=== PATIENT | male | born 1985 ===

== ENCOUNTER 2017-05-10 17:38 | Emergency (ER) | payer SELFPAY ==
[2017-05-10 17:46] VITALS: BMI 31.2
[2017-05-10 17:47] VITALS: TEMP 98.7; O2SAT 98
[2017-05-10 18:36] LABS: RBC URINE 1 /hpf (0-3); URINE BILIRUBIN NEGATIVE (NEGATIVE); URINE BLOOD NEGATIVE (NEGATIVE); URINE COLOR Yellow (YELLOW); URINE GLUCOSE (UA) NORMAL (Normal); URINE KETONE NEGATIVE (NEGATIVE); URINE LEUKOCYTE ESTERASE NEG Leu/uL (Negative); URINE PROTEIN NEGATIVE (NEGATIVE); URINE UROBILINOGEN NORMAL mg/dL (0.2-1.0); WBC URINE < 1 /hpf (0-5)
--- NOTE | 2017-05-10 18:48 | C.PDOC ---
History Of Present Illness 31 yr old male presents to the ER for evaluation of mild discomfort with urination and pain over the penile gland, gradually developing for the past 2 days. Patient denies recent unprotected sex, fever, nausea, vomiting, abdominal pain, diarrhea, penile lesions, testicular swelling or pain. Time Seen by Provider: 05/10/17 17:58 Chief Complaint (Nursing): Male Genitourinary History Per: Patient History/Exam Limitations: no limitations Onset/Duration Of Symptoms: Gradual (2 days) Current Symptoms Are (Timing): Still Present Past Medical History Reviewed: Historical Data, Nursing Documentation, Vital Signs Vital Signs: Last Vital Signs Temp 98.7 F 05/10/17 17:46 Pulse 72 05/10/17 17:46 Resp 18 05/10/17 17:46 BP 132/82 05/10/17 17:46 Pulse Ox 98 05/10/17 18:50 Family History: States: No Known Family Hx - Social History Hx Alcohol Use: No Hx Substance Use: No - Immunization History Hx Tetanus Toxoid Vaccination: No Hx Influenza Vaccination: No Hx Pneumococcal Vaccination: No Review Of Systems Except As Marked, All Systems Reviewed And Found Negative. Constitutional: Negative for: Fever Gastrointestinal: Negative for: Nausea, Vomiting, Abdominal Pain, Diarrhea Genitourinary: Positive for: Dysuria (Mild), Other ((+) pain over the penile gland (-) testicular swelling or pain) Physical Exam - Physical Exam Appears: Non-toxic, No Acute Distress Skin: Warm, Dry, No Rash Head: Normacephalic Eye(s): bilateral: PERRL Nose: No Flaring, No Discharge Oral Mucosa: Moist, No Drooling Throat: No Erythema, No Drooling Neck: Supple Gastrointestinal/Abdominal: Soft, No Tenderness, No Distention, No Guarding, No Rebound Back: No CVA Tenderness Male Genital: No Testicular Tenderness, No Testicular Swelling, No Circumcised, Other ((+) mild edema and erythema over the penile gland, non circumcised. NO lesions) Extremity: Normal ROM, No Swelling Neurological/Psych: Oriented x3, Normal Speech ED Course And Treatment O2 Sat by Pulse Oximetry: 98 (RA) Pulse Ox Interpretation: Normal Progress Note: On re-eavluation, pt is afebrile, hemodynamicalys table. Non- toxic. ENT: no acute findings. neck: Supple. Abd: benign, (-) guarding, (-) rebound, (-) lcoalized tenderness. back: (-) CVA tenderness. : exam c/w penile gland edema, mild eyrthme ar/o balanaitis.NO lesion, no testicular edema or erythema. UA results reiew (-). FSBS 81. Pt advised adn ref. to F/u with urology in 2-3 days for re-eavluation. return to ED if any worsening or new changes. Medical Decision Making Medical Decision Making: PLAN: * Chlamydia GC * Urinalysis Disposition Counseled Patient/Family Regarding: Diagnosis, Need For Followup, Rx Given - Disposition Referrals: Riky Lee MD [Staff Provider] - Disposition: HOME/ ROUTINE Disposition Time: 19:07 Condition: STABLE Additional Instructions: AVOID SEXUAL ACTIVITY FOR 1 WEEK USE MEDICATION PRESCRIBED FOLLOW UP WITH UROLOGY IN 2-3 DAYS FOR RE-EVALUATION. RETURN TO ED IF ANY WORSENING OR NEW CHANGES. Prescriptions: Clotrimazole 1% Cream [Lotrimin 1% CREAM] 1 applic TOP BID #1 tube Instructions: Cecilia (ED) Forms: [employer] (Ukrainian) Print Language: ESTONIAN - Clinical Impression Clinical Impression: Balanitis - PA / ARCHIVES SPECIALIST / Resident Statement MD/DO has reviewed & agrees with the documentation as recorded. - Scribe Statement The provider has reviewed the documentation as recorded by the Scribe Arianna Packer All medical record entries made by the Scribe were at my direction and personally dictated by me. I have reviewed the chart and agree that the record accurately reflects my personal performance of the history, physical exam, medical decision making, and the department course for this patient. I have also personally directed, reviewed, and agree with the discharge instructions and disposition.
[2017-05-10 19:21] VITALS: BP 115/68; PULSE 70; RESP 16
== END 2017-05-10 19:20 | disposition home or self-care (01) ==
LOC: C.ER 17:38
DX: N48.1 Balanitis (principal)